=== PATIENT | female | born 1975 | race Caucasian/White ===

== ENCOUNTER 2022-06-10 01:29 | Day surgery (SDC) | payer BC, OTHER, SELFPAY ==
[2022-05-27 14:29] VITALS: BMI 30.1
--- NOTE | 2022-06-09 14:58 | PM.HPGS ---
History of Present Illness History of Present Illness Consent: Risks, benefits, and alternatives have been discussed and questions answered. Patient agrees to proceed with procedure. Chief complaint: neoplasm screening Narrative: Karen Fitzpatrick is a 46 year old female Referred for colon cancer screening. Review of Systems Review of Systems: All systems reviewed & are unremarkable except as noted in HPI and below [facility] Social History Social History Living arrangements: with family Meds Home Medications and Allergies Home Medications Medication Instructions Recorded Confirmed Type omeprazole 20 mg capsule,delayed 20 mg PO DAILY 05/27/22 05/27/22 History release rosuvastatin 20 mg tablet 20 mg PO DAILY 05/27/22 05/27/22 History valacyclovir 1 gram tablet 500 mg PO DAILY 05/27/22 05/27/22 History (Valtrex) Allergies Allergy/AdvReac Type Severity Reaction Status Date / Time No Known Allergies Allergy Verified 06/10/22 08:41 Exam Const: General: alert Orientation/consciousness: patient oriented x3 Resp: Auscultation: clear to auscultation bilaterally Cardio: Rhythm: regular rhythm GI: GI Palp: Yes Soft to palpation and No Tenderness to palpation present (GI) Neuro: General: patient oriented x3 Assessment and Plan Assessment and plan (1) Colon cancer screening: Code(s): Z12.11 - Encounter for screening for malignant neoplasm of colon Status: Acute Assessment and Plan: Colonoscopy with possible biopsy or polypectomy or cautery or injection of substances.
[2022-06-10 08:44] VITALS: BP 159/87; PULSE 106; RESP 18; TEMP 36.9; O2SAT 100
[2022-06-10] MEDS: LACTATED RINGERS 1,000 ML 150 ML IV CONT (08:55)
--- NOTE | 2022-06-10 09:19 | P.PNAN_ITS ---
Anes - Initial Pre Proc Eval Procedure: Operation Date: 06/10/22 10:00 Proposed Procedures p Screening Colonoscopy - Quinton Remy MD Date/Time: 06/10/22 09:19 Surgeon: Quinton Remy MD Pre Op Diagnosis: neoplasm screening Patient Data Age: 46 Gender: F Height: 1.6 m Weight: 75.8 kg Last Vital Signs Temp 98.4 F 06/10/22 08:44 Pulse 106 H 06/10/22 08:44 Resp 18 06/10/22 08:44 BP 159/87 H 06/10/22 08:44 Pulse Ox 100 06/10/22 08:44 O2 Del Method Room Air 06/10/22 08:44 Allergies Allergy/AdvReac Type Severity Reaction Status Date / Time No Known Allergies Allergy Verified 06/10/22 08:41 Home Medications Medication Instructions Recorded Confirmed Type omeprazole 20 mg capsule,delayed 20 mg PO DAILY 05/27/22 05/27/22 History release rosuvastatin 20 mg tablet 20 mg PO DAILY 05/27/22 05/27/22 History valacyclovir 1 gram tablet 500 mg PO DAILY 05/27/22 05/27/22 History (Valtrex) Patient hx anesthesia problems: none Family hx anesthesia problems: none Results Review: All pre-operative results and documents have been reviewed as part of the pre- operative evaluation. [facility] Social History Social History Living arrangements: with family Anes - Eval Final PreProcedure Day of Procedure 06/10/22 09:19 Patient weight: obese Heart: regular rate and rhythm Lungs: clear to auscultation Airway: Mallampati scale class II Neurological: alert and oriented Last oral intake: >/= 8 hours ASA classification: II Emergent: no Anesthetic plan: proceed Anesthesia type and monitoring: general GIVS and standard monitoring Results Review: All pre-operative results and documents have been reviewed as part of the pre- operative evaluation. Informed Consent: The patient's anesthetic plan and its attendant risks and benefits were discussed with the patient/family/POA. Questions were solicited and answers provided to the satisfaction of the patient/family/POA.
[2022-06-10 10:14] VITALS: BP 109/55; PULSE 89; RESP 30; O2SAT 100
[2022-06-10 10:24] VITALS: BP 114/58; PULSE 78; RESP 19; O2SAT 100
[2022-06-10 10:34] VITALS: BP 110/64; PULSE 73; RESP 19; O2SAT 100
== END 2022-06-10 10:42 | disposition home or self-care (01) ==
PROVIDERS: PCP Nurse Practitioner Family; Visit Provider Internal Medicine Gastroenterology
PROC: 0DJD8ZZ Inspection of Lower Intestinal Tract, Via Natural or Artificial Opening Endoscopic (ICD-10-PCS; CPT 45378; principal; 2022-06-10 10:00)
DX: Z12.11 Encounter for screening for malignant neoplasm of colon (principal); K57.30 Diverticulosis of large intestine without perforation or abscess without bleeding; D12.5 Benign neoplasm of sigmoid colon; E66.9 Obesity, unspecified; Z68.29 Body mass index [BMI] 29.0-29.9, adult
CPT/HCPCS: 45381; 45385; 88305; J2704; J7120